=== PATIENT | female | born 1945 | race Caucasian/White ===

== ENCOUNTER → 2021-06-24 | Outpatient (CLI) | payer MEDICARE, OTHER ==
[2021-06-24 12:15] VITALS: BP 164/104; PULSE 92; RESP 16; TEMP 98
--- NOTE | 2021-06-24 13:19 | P.GSHP ---
History of Present Illness H&P Date: 06/24/21 Chief Complaint: right breast invasive ductal cancer/ multifocal Ellie is a 76 year old white female who underwent a bilateral screening mammogram on 86. This rate feel 2 areas suspicious for malignancy. An ultrasound was [place] [address]. This revealed 2 lesions. The patient does not complain of any nipple discharge or skin changes. She does not complain of any pain in her breast at this time. She has never had any surgery on her breasts before. These were in the lower subareolar aspect one medial to the nipple and one lateral to the nipple. An ultrasound core biopsy was done on 06-15-21. On the ultrasound 1 cm from the nipple 5 o'clock position 8 x 7 mm mass was identified. Additionally the more superficial lesion in the 7 o'clock position 1 cm from the nipple revealed a 9 x 11 mm mass tolerated and wide. These lesions were approximately 1.8 cm from each other. Biopsy of both of these lesions revealed invasive ductal carcinoma. The lesions are ER/MO positive and HER-2 negative. The patient did fall in the spring and had a torn right shoulder rotator cuff. That seems to have improved. However she may have overcompensated and now has left sciatica pain. This started 1 week ago. Caffiene: tea; several cups/day nicotine:none; smoked 1PPD for 45 years chocolate: daily Family history: none Hormonal History: menarche: 12 , 1 tubal; breast fed: no, age at first : 17 menopause: 57 BCP: 5 years hormones: progesterone for a short time Surgical History: Tubal /tubal ligation done Medical history: Sciatic nerve high cholesterol Social History: smoke: none alcohol: occasional drugs: none - Constitutional Constitutional: Denies chills, Denies fever - EENT Eyes: denies blurred vision, denies pain Ears: deny: decreased hearing, tinnitus Ears, nose, mouth and throat: Denies headache, Denies sore throat - Breasts Breasts: bilateral: as per HPI - Cardiovascular Cardiovascular: Reports shortness of breath, Denies chest pain - Respiratory Respiratory: Reports cough - Gastrointestinal Gastrointestinal: Denies abdominal pain, Denies diarrhea, Denies nausea, Denies vomiting - Genitourinary (Female) Genitourinary: Denies dysuria, Denies hematuria - Menstruation Menstruation: Reports postmenopausal - Musculoskeletal Musculoskeletal: Reports myalgias - Integumentary Integumentary: Denies pruritus, Denies rash - Neurological Comment: sciatica - Psychiatric Psychiatric: Denies anxiety, Denies depression - Endocrine Endocrine: Denies fatigue, Denies weight change - Hematologic/Lymphatic Comment: anemia - Allergic/Immunologic Allergic/Immunologic: Reports as per HPI Past Medical History History of Any Multi-Drug Resistant Organisms: None Reported Smoking Status: Never smoker Medications and Allergies Home Medications Medication Instructions Recorded Confirmed Type Baclofen 1 cap PO DAILY 06/24/21 06/24/21 History HYDROcodone/APAP 10-325MG [[place] 1 tab PO Q4-6H 06/24/21 06/24/21 History 10-325] Meloxicam [Mobic] 1 cap PO DAILY 06/24/21 06/24/21 History dexAMETHasone 2 mg PO DAILY 06/24/21 06/24/21 History Allergies Allergy/AdvReac Type Severity Reaction Status Date / Time No Known Allergies Allergy Unverified 06/24/21 11:45 Surgical - Exam Vital Signs Temp Pulse Resp BP Pulse Ox 98.0 F 92 16 164/104 97 06/24/21 12:04 06/24/21 12:04 06/24/21 12:04 06/24/21 12:04 06/24/21 12:04 BMI 29.8 - General well developed, well nourished, no distress - Eyes normal ocular movement - ENT no hearing loss, no congestion - Respiratory normal respiratory effort, clear to auscultation - Cardiovascular Rhythm: regular Heart Sounds: normal: S1, S2 - Abdomen Abdomen: soft, non tender, no guarding, no rigid, no rebound - Integumentary normal turgor - Neurologic no disoriented, no combative - Musculoskeletal uses a cane - Psychiatric oriented to time, oriented to person, oriented to place, speech is normal, memory intact Breast exam: BRA: XL inspection: Ecchymosis right breast lateral area related to biopsy, no evidence of infection or hematoma, bilateral grade 2 ptosis Palpation: Right breast: Multi-positional exam questionable fullness in the subareolar region on the lateral aspect fibrocystic changes, otherwise no dominant masses or nodules of concern Right axilla: No adenopathy of concern Left breast: Multi-positional exam fibrocystic changes no dominant masses or nodules of concern Left axilla: No adenopathy of concern Results Mammogram reviewed in detail with Dr. Escoto Assessment and Plan Assessment: Impression: 1. Multifocal right breast stage I a invasive ductal carcinoma 2. Fibrocystic breast changes 3. Sciatica 4. Chronic anemia Plan: 1. Needle localization and it incisional lumpectomy of both areas of concern right breast, sentinel node injection right side, possible methylene blue injection right side, sentinel node biopsy right side, possible axillary node dissection, possible onco- plastic tissue transfer, right breast needle localization and lumpectomy of 2 sites. 2. Presentation of case at tumor board Risks and benefits of the procedure were discussed with the patient. Treatment of the breast include mastectomy, mastectomy plus or minus reconstruction, lumpectomy plus radiation. The patient would prefer to have a lumpectomy if technically possible. Additionally we've talked about sentinel node biopsy. I have discussed with the patient and her daughter that there is some recommendations that over the age of 70 the sentinel node biopsy be omitted. However they would prefer the sentinel node biopsy be done. They understand risks which include bleeding, infection, reaction to the anesthetic. Additionally they understand possibility of injury to the thoracodorsal long thoracic or intercostal brachial nerves. They wish to proceed. He also understands the risk of lymphedema with a sentinel node/axillary node dissection and wished to proceed. They understand that if the margins would be positive on a lumpectomy that repeat excision would be necessary.
== END ==
LOC: WWCWWP 11:36
PROVIDERS: ATTEND Surgery
DX: C50.911 Malignant neoplasm of unspecified site of right female breast (principal); N60.11 Diffuse cystic mastopathy of right breast; N60.12 Diffuse cystic mastopathy of left breast; M54.30 Sciatica, unspecified side; D64.9 Anemia, unspecified; E78.00 Pure hypercholesterolemia, unspecified; Z17.0 Estrogen receptor positive status [ER+]

== ENCOUNTER 2021-07-26 08:15 | Day surgery (SDC) | payer MEDICARE, OTHER ==
[2021-07-22 11:31] VITALS: BMI 29.1
--- NOTE | 2021-07-22 12:14 | P.PN ---
Subjective Progress Note Date: 07/22/21 Principal diagnosis: Stage IA right breast invasive ductal carcinoma multifocal Ellie is a 76 year old white female who underwent a bilateral screening mammogram on 86. This revealed 2 areas suspicious for malignancy. An ultrasound was [place] [address]. This revealed 2 lesions. The patient does not complain of any nipple discharge or skin changes. She does not complain of any pain in her breast at this time. She has never had any surgery on her breasts before. These were in the lower subareolar aspect one medial to the nipple and one lateral to the nipple. An ultrasound core biopsy was done on 06-15-21. On the ultrasound 1 cm from the nipple 5 o'clock position 8 x 7 mm mass was identified. Additionally the more superficial lesion in the 7 o'clock position 1 cm from the nipple revealed a 9 x 11 mm mass taller than wide. These lesions were approximately 1.8 cm from each other. Biopsy of both of these lesions revealed invasive ductal carcinoma. The lesions are ER/AL positive and HER-2 negative. The patient did fall in the spring and had a torn right shoulder rotator cuff. That seems to have improved. However she may have overcompensated and now has left sciatica pain. This started 1 week ago. Her case was presented at tumor board and [id number]. The recommendation was first lumpectomy with sentinel node biopsy, patient therapy, and hormonal therapy. Caffiene: tea; several cups/day nicotine:none; smoked 1PPD for 45 years chocolate: daily Family history: none Hormonal History: menarche: 12 , 1 tubal; breast fed: no, age at first : 17 menopause: 57 BCP: 5 years hormones: progesterone for a short time Surgical History: Tubal /tubal ligation done Medical history: Sciatic nerve pain high cholesterol Social History: smoke: none alcohol: occasional drugs: none - Constitutional Constitutional: Denies chills, Denies fever - EENT Eyes: denies blurred vision, denies pain Ears: deny: decreased hearing, tinnitus Ears, nose, mouth and throat: Denies headache, Denies sore throat - Breasts Breasts: bilateral: as per HPI - Cardiovascular Cardiovascular: Reports shortness of breath, Denies chest pain - Respiratory Respiratory: Reports cough - Gastrointestinal Gastrointestinal: Denies abdominal pain, Denies diarrhea, Denies nausea, Denies vomiting - Genitourinary (Female) Genitourinary: Denies dysuria, Denies hematuria - Menstruation Menstruation: Reports postmenopausal - Musculoskeletal Musculoskeletal: Reports myalgias - Integumentary Integumentary: Denies pruritus, Denies rash - Neurological Comment: sciatica - Psychiatric Psychiatric: Denies anxiety, Denies depression - Endocrine Endocrine: Denies fatigue, Denies weight change - Hematologic/Lymphatic Comment: anemia - Allergic/Immunologic Allergic/Immunologic: Reports as per HPI Objective - Vital Signs Vital signs: Intake & Output 07/21/21 07/22/21 07/22/21 18:59 06:59 18:59 Weight 79.379 kg - Constitutional General appearance: Present: cooperative - EENT Eyes: Present: EOMI ENT: Present: hearing grossly normal - Neck Neck: Present: normal ROM - Respiratory Respiratory: bilateral: CTA - Cardiovascular Heart sounds: normal: S1, S2 - Gastrointestinal General gastrointestinal: Present: soft - Integumentary Integumentary: Present: normal turgor - Musculoskeletal Musculoskeletal Comment(s): using a cane - Psychiatric Psychiatric: Present: A&O x's 3, appropriate affect, intact judgment & insight - Additional findings Additional findings: Breast examination: Block: Extra-large large Inspection: Ecchymosis right breast lateral area related to biopsy, no evidence of infection or hematoma, bilateral grade 2 ptosis Palpation: Right breast: Multiple positional exam questionable fullness in the subareolar region on the lateral aspect fibrocystic changes, no dominant masses or nodules of concern otherwise Right axilla: No adenopathy of concern left breast: Multiple positional exam fibrocystic changes no dominant masses or nodules of concern Left axilla no adenopathy of concern Assessment and Plan Assessment: Mammogram reviewed in detail with Dr. Escoto Impression: Multifocal right breast stage I invasive ductal cancer 2. Fibrocystic breast changes 3. Resulting sciatica 4. Chronic anemia Plan: Plan: 1. Nasal localization and lumpectomy of 2 areas of concern in the right breast, with sentinel node injection, possible methylene blue injection right side, sentinel node biopsy right side, possible axillary node dissection, possible oculoplastic tissue transfer, right breast needle localization lumpectomy of 2 sites Risks and benefits of the procedure were discussed with the patient.. Treatment of the breast and including mastectomy, mastectomy plus or minus reconstruction, lumpectomy plus radiation were discussed. The patient would like to have a lumpectomy. We've also talked with sentinel node biopsy. I discussed with the patient and her daughter that there is some recommendation that over the age of 70 sentinel node biopsy be admitted. However they wish sentinel node biopsy to be performed. Risk include but are not limited to bleeding, infection, reaction to the anesthetic. Additionally there is a possibility of injury to the thoracodorsal or long thoracic or intercostal brachial nerves. They wish to proceed. The also understand the risk of lymphedema with sentinel node/axillary node biopsy. They understand if margins were to be positive on the pectinate a repeat excision would be necessary. At this time the patient does not want a mastectomy to be performed.
[~2021-07-26 08:15] MED LIST: DEXAMETHASONE SOD PHOSPHATE 4 MG/ML 1 ML VIAL IV ONE; HEPARIN SODIUM,PORCINE/PF 5,000 UNIT/0.5 ML SYRINGE SQ PRN; HYDROmorphone 0.5 MG/0.5 ML SYRINGE IVP PRN; LACTATED RINGERS 1,000 ML IV SCH; ONDANSETRON 4 MG/2 ML VIAL IVP ONE; Pre Op ABX Message 1 EACH MISC MISCELLANE ONE
[2021-07-26] MEDS ORDERED: ALPRAZolam 0.25 MG TAB ONE (08:59)
[2021-07-26] MEDS ORDERED: ALPRAZolam 0.25 MG TAB PO ONE (09:02)
[2021-07-26] MEDS ORDERED: LIDOCAINE 1% (10MG/ML) FOR IV START INTRADERMA ONE (09:22)
[2021-07-26] MEDS ORDERED: LIDOCAINE 1% INJ 10MG/ML (20 ML MDV) SQ ONE ×3 (10:23→11:50)
[2021-07-26] MEDS ORDERED: LIDOCAINE 1%-EPI 1:100,000 20 ML VIAL SQ ONE (10:24)
--- NOTE | 2021-07-26 10:29 | P.NAPBC ---
NAPBC Queries - NAPBC Queries Was patient's case review presented at [facility] tumor board? If no, comment.: Yes Was patient's pathology reviewed at [facility]? If no, comment.: Yes Was breast conservation surgery offered? If no, comment.: Yes Was sentinel node biopsy offered? If no, comment.: Yes Was diagnosis confirmed by percutaneous core biopsy? If no, comment.: Yes Is patient mastectomy patient?: No Was a preop referral to reconstructive surgeon offered?: No Clinical Stage: stage IA
[2021-07-26] MEDS ORDERED: SUCCINYLCHOLINE CHLORIDE 100 MG/5 ML SYR IV ONE (11:17)
[2021-07-26] MEDS ORDERED: fentaNYL (PF) 50 MCG/ML 2 ML AMP ONE (11:17)
[2021-07-26] MEDS ORDERED: PROPOFOL 10 MG/ML 20 ML VIAL IV ONE (11:17)
[2021-07-26] MEDS ORDERED: LIDOCAINE 1% INJ 10MG/ML (20 ML MDV) ONE (11:17)
[2021-07-26] MEDS ORDERED: KETOROLAC 15 MG/ML 1 ML VIAL ONE (11:17)
--- NOTE | 2021-07-26 11:34 | NM ---
EXAMINATION TYPE: NM sentinel node injection DATE OF EXAM: 07/26/2021 COMPARISON: NONE HISTORY: Right-sided breast cancer. TECHNIQUE AND FINDINGS: The procedure of sentinel lymph node injection was explained to the patient. The benefits, alternatives, and risks were discussed. An informed consent was then obtained. Overlying skin is cleaned with sterile alcohol. Following this, 495 uCi Tc99m Tilmanocept was inject ed in the upper outer aspect of the right nipple intradermally. The patient tolerated the procedure well without any immediate complication. The patient was kept in the radiology department for short stay after the procedure and then taken to surgery for surgical p rocedure what is presumed intraoperative gamma probe will be used for sentinel lymph node detection. IMPRESSION: Right breast radiotracer injection for sentinel node localization as above.
[2021-07-26] MEDS ORDERED: SODIUM CHLORIDE 0.9% 100 ML with ceFAZolin 2,000 MG IV ONE ×2 (11:35)
--- NOTE | 2021-07-26 13:04 | P.OP ---
Date of Procedure: 07/26/21 Preoperative Diagnosis: Right breast invasive ductal carcinoma 2 sites stage IA both sites Postoperative Diagnosis: Same Procedure(s) Performed: Right sentinel node biopsy, needle localization lumpectomy, onco-plastic tissue transfer total tissue transfer 70 cm Anesthesia: SEGUNDOA Surgeon: Sachi Jerry Estimated Blood Loss (ml): 10 IV fluids (ml): 400 Pathology: other (breast tissue, sentinal node) Condition: stable Disposition: same day Indications for Procedure: Right breast invasive ductal carcinoma Operative Findings: Fibrofatty breast tissue Description of Procedure: Patient is a 76-year-old white female who was noted to have multifocal invasive breast cancer in the right breast, core biopsy of 2 sites were both invasive ductal carcinoma. The patient wishes breast preservation procedure lumpectomy. The patient was first seen in the radiology department where needle localization of both areas of concern in the right breast were performed. The patient also had injection of radioactive substance for the sentinel lymph node. She has brought to the operative suite and following induction of anesthesia the axilla was interrogated. The neoprobe showed the area of increased radioactivity in the axilla. The right breast and axilla were then prepped and draped in a sterile fashion. The axilla was approached initially. Utilizing the neoprobe the location for the incision was determined. An incision was made and carried into the axillary tissue. The area of greatest radioactivity was identified. This was grasped using an Allis clamp and the tissue was removed. On the 10 second count this was 1227. 10 second background count was 21. No other palpable nodes or radioactive nodes of concern were identified. Some additional axillary tissue was removed in the process of identifying the sentinel node. The wound was then well irrigated. After we were assured that hemostasis was attained the deep tissues were closed using 3-0 Vicryl suture. The skin was closed using 4-0 Monocryl. Following this the area of the breast was approached. An incision was made circumareolar with extensions medially and laterally. This was carried down to the area of concern. Wide excision of the tissue marked by the needles was performed. The specimen removed was approximately 7 x 4 cm in size. This was dissected from directly under the skin of the nipple areolar complex and unto the pectoralis major muscle. After this had been removed it was painted for orientation. Radiograph revealed the area of concern had been removed. The wound was well irrigated. Titanium clips were placed. The patient had the lateral pillar dissected which was 6 by 4 centimeters squared, the medial pillar was 6 x 3 cm squared. Tissue transfer was 70 cm. Following this the pillars were brought together using 3-0 Vicryl suture. Subcutaneous tissue was closed using 3-0 Vicryl suture. The skin was closed using 4-0 Monocryl. The patient tolerated the procedure in stable condition. All instrument and sponge counts were correct at the end of the case.
--- NOTE | 2021-07-26 13:06 | P.DS ---
Providers Attending physician: Sachi Jerry Primary care physician: Physician Nonstaff Plan - Discharge Summary Discharge Rx Participant: Yes New Discharge Prescriptions: No Action Meloxicam [Mobic] 1 cap PO DAILY Losartan Potassium 50 mg PO HS Baclofen 1 cap PO DAILY Acetaminophen/Diphenhydramine [Tylenol PM 500-25mg] 1 tab PO HS PRN PRN Reason: Anxiety Discharge Medication List Baclofen 1 cap PO DAILY 06/24/21 [History] Meloxicam [Mobic] 1 cap PO DAILY 06/24/21 [History] Acetaminophen/Diphenhydramine [Tylenol PM 500-25mg] 1 tab PO HS PRN 07/22/21 [History] Losartan Potassium 50 mg PO HS 07/22/21 [History] Follow up Appointment(s)/Referral(s): Sachi Jerry MD [STAFF PHYSICIAN] - 08/05/21 12:20 pm Activity/Diet/Wound Care/Special Instructions: do not drive today or if taking narcotic pain medicine may shower after 48 hours wear bra at all times Discharge Disposition: HOME SELF-CARE
[2021-07-26 13:52] VITALS: TEMP 96.9
--- NOTE | 2021-07-26 13:58 | USB ---
EXAM: Needle localization with wire placement. CLINICAL HISTORY: 2 site biopsy proven neoplasm in the right breast TECHNIQUE: Needle localization with wire placement and surgical excision of both areas of concern in the right breast. COMPARISON: Outside ultrasound and postbiopsy mammogram June 15, 2021 and older outside studies. FINDINGS: The procedure of needle localization with wire placement and than surgical excision was exp lained to the patient. Benefits, alternatives, and risks were discussed. An informed consent was th en obtained. Because lesions were sampled and best seen under ultrasound which provides the shortest path, this is chosen for localization. Preprocedure ultrasound redemonstrates suspicious hypoechoic masses that 5 :00 and 7:00 position zone A, 7:00 lesion larger and more suspicious. The overlying skin was prepped and draped in usual sterile fashion. Lidocaine was used as anesthetic into the skin and subcutaneous tissue. Lidocaine with epinephrine is used as anesthetic into the deeper tissue up to the to areas of concern. A 5 cm needle was used. 7:00 lesion was approached from lateral aspect. The 5:00 lesion wa s approached from medial aspect. Under ultrasound guidance, needle wires were placed and At this poin t, wire was placed and the needle was withdrawn. The wire was fixed to patient's skin. Postprocedure mammogram performed for ordering surgeon. Images were marked for surgeon. The patient tolerated the procedure well without any immediate complication. The patient was kept in the radiology department for short stay after the procedure and then taken to surgery for surgical e xcision. Targeted biopsy clips and wire are identified in specimen mammogram. [facility] after the procedure and then discharged home in stable condition. IMPRESSION: Successful, uncomplicated needle localization with wire placement and surgical excision o f targeted biopsy clips corresponding to biopsy-proven malignant masses in the right breast, full pat hology results to follow.
[2021-07-26 14:07] VITALS: RESP 18
[2021-07-26] MEDS ORDERED: LACTATED RINGERS 1,000 ML IV ONE (14:12)
[2021-07-26 14:53] VITALS: BP 178/99; PULSE 89
--- NOTE | 2021-07-28 11:33 | P.PN ---
Progress Note - Text Progress Note Date: 07/28/21 [place] [id number]. Patient stated she had some abdominal discomfort after eating a steak dinner the night of surgery. She stated that she had a large amount of gas. She states that at this time she has passed gas and she no longer has abdominal pain but is concerned about eating. She is not complaining of any fever or chills. She does not complain of any pain related to her operative site. The patient has had bowel movements and at this time again has no abdominal pain. If the pain recurs that she should go to the emergency department. The patient states that she was concerned so did not eat since yesterday but is going to start with a smaller portions and a bland diet at this time. Again if the patient has any questions or concerns she should go to the emergency room.
== END 2021-07-26 15:20 | disposition home or self-care (01) ==
LOC: OR 08:15
PROVIDERS: ATTEND Surgery
DX: C50.911 Malignant neoplasm of unspecified site of right female breast (principal); I10 Essential (primary) hypertension; E78.5 Hyperlipidemia, unspecified; Z77.22 Contact with and (suspected) exposure to environmental tobacco smoke (acute) (chronic); Z98.890 Other specified postprocedural states; Z97.2 Presence of dental prosthetic device (complete) (partial); Z98.51 Tubal ligation status; E78.00 Pure hypercholesterolemia, unspecified; M54.30 Sciatica, unspecified side; D64.9 Anemia, unspecified; Z79.1 Long term (current) use of non-steroidal anti-inflammatories (NSAID); Z79.899 Other long term (current) drug therapy
CPT/HCPCS: 77065; 76098; 19285; 19286; 38792; 19301; 38525; 14301; 14302; C1819; A9520; J1100; J2405; J0690; J2001; J3010; J1885; J0330; J2704; J1170; J1644

== ENCOUNTER → 2021-08-05 | Outpatient (CLI) | payer MEDICARE, OTHER ==
[2021-08-05 12:34] VITALS: BP 153/86; PULSE 88; RESP 12; TEMP 98.1
--- NOTE | 2021-08-05 13:06 | P.PN ---
Progress Note - Text Progress Note Date: 08/05/21 Ellie is a 76-year-old white female status post right breast lumpectomy and sentinel node biopsy on . Pathology revealed multifocal invasive moderately differentiated ductal carcinoma grade 2 and focal intermediate grade DCIS all margins were negative [place] lymph node negative Patient has done well postprocedure Physical examination: Lungs: Clear Heart: Regular rate and rhythm Right breast incision is clean and dry small seroma tissue in the lateral aspect of the right breast Impression: Patient status post right breast lumpectomy and sentinel node biopsy margins negative Plan: Remove sutures Follow-up with medical oncology Follow-up radiation oncology Follow-up care in 4 months CC: Dr. Bishop
== END ==
LOC: WWCWWP 12:19
PROVIDERS: ATTEND Surgery
DX: C50.911 Malignant neoplasm of unspecified site of right female breast (principal); Z98.890 Other specified postprocedural states

== ENCOUNTER → 2022-09-28 | Outpatient (CLI) | payer MEDICARE, OTHER ==
--- NOTE | 2022-09-28 13:37 | MM ---
Reason for Exam: Follow-up at short interval from prior study. Last mammogram was performed 1 year(s) and 4 month(s) ago. Patient History: Menarche at age 12. First Full-Term at age 17. Right ovary removed at age 32. Postmenopausal. Patient has history of breast feeding. Breast cancer, age 76. Previous chest radiation therapy at age 76. 07/26/2021, Lumpectomy on the Right side. 07/26/2021, Malignant Core Biopsy on the right side. Prior Study Comparison: 10/26/2016 Bilateral MG 3D screening mammo w/cad, [facility]. 05/27/2021 Bilateral MG 3D screening mammo w/cad, Unknown. 06/02/2021 Right MG 3D diag mammo w/cad DANITA - 2, [facility]. 07/26/2021 Right Diagnostic Mammogram, [facility]. 06/08/2022 Right MG 3D diag mammo w/cad RT, [facility]. Tissue Density: The breast tissue is heterogeneously dense. This may lower the sensitivity of mammography. Findings: Analyzed By CAD. Diffuse bilateral rounded punctate calcifications redemonstrated. Benign vascular calcifications on the left. Extensive postsurgical and posttreatment changes right breast with a 7.6 cm circumscribed mass redemonstrated on the right, likely large post surgical seroma. Ongoing follow-up recommended to assess for any evolving posttreatment change. Nipple inversion on the left is unchanged. Otherwise, stable findings from prior. Overall Assessment: Probably benign, BI-RAD 3 Management: Diagnostic Mammogram of the right breast in 6 months. Ongoing short interval follow-up right breast to assess for any evolving posttreatment change. Patient should continue monthly self breast exams. Results were given to the patient verbally at the time of exam. Electronically signed and approved by: Rani Mata M.D. Radiologist
[2022-09-28 13:50] VITALS: BP 183/83; PULSE 85; RESP 17; TEMP 97.8
--- NOTE | 2022-09-28 14:01 | P.PN ---
Subjective Progress Note Date: 09/28/22 Principal diagnosis: right breast stage 1A multifocal invasive ductal cancer right breast stage 1A mutifocal invasive ductal cancer right breast invasive ductal cancer Ellie is a 77 year old white female who underwent a bilateral screening mammogram on 8620. This revealed 2 areas suspicious for malignancy. An ultrasound [place] [address]. This revealed 2 lesions. The patient did not complain of any nipple discharge or skin changes. She did not complain of any pain in her breast at this time. She had never had any surgery on her breasts before. These were in the lower subareolar aspect one medial to the nipple and one lateral to the nipple. An ultrasound core biopsy was done on 06-15-21. On the ultrasound 1 cm from the nipple 5 o'clock position 8 x 7 mm mass was identified. Additionally the more superficial lesion in the 7 o'clock position 1 cm from the nipple revealed a 9 x 11 mm mass taller than wide. These lesions were approximately 1.8 cm from each other. Biopsy of both of these lesions revealed invasive ductal carcinoma. The lesions are ER/CA positive and HER-2 negative. The patient did fall in the spring and had a torn right shoulder rotator cuff. That seems to have improved. However she may have overcompensated and now has left sciatica pain. This started 1 week ago. The patient on 08-05-21 underwent a right breast lumpectomy and SNB. Pathology revelaed multifocal invasive ductal cancer G2. Sentinal node was (-). She completed proton radiation in November 2021. This was done in [facility]. She did not have any chemotherapy or hormone therapy. At this time she does not note any lumps masses or nodules of concern in either breast. I reviewed right breast mammogram performed on with Dr. Calero who feels that there are only postoperative and postradiation changes and this is stable. 09-28-22 Bialteral mammogram on 09-28-22 bilateral mammogram reviewed; BIRAD 3 repeat right breast mammogram in 6 months. This is not complaining of any new lumps ma sses or nodules of concern in either breast. Caffiene: tea; several cups/day nicotine:none; smoked 1PPD for 45 years chocolate: daily Family history: none Hormonal History: menarche: 12 , 1 tubal; breast fed: no, age at first : 17 menopause: 57 BCP: 5 years hormones: progesterone for a short time Surgical History: Tubal /tubal ligation done right breast lumpectomy and SNB Medical history: Sciatic nerve/ better at this time high cholesterol Social History: smoke: none alcohol: occasional drugs: none - Constitutional Constitutional: Denies chills, Denies fever - EENT Eyes: denies blurred vision, denies pain Ears: deny: decreased hearing, tinnitus Ears, nose, mouth and throat: Denies headache, Denies sore throat - Breasts Breasts: bilateral: as per HPI - Cardiovascular Cardiovascular: Reports shortness of breath, Denies chest pain - Respiratory Respiratory: Reports cough - Gastrointestinal Gastrointestinal: Denies abdominal pain, Denies diarrhea, Denies nausea, Denies vomiting - Genitourinary (Female) Genitourinary: Denies dysuria, Denies hematuria - Menstruation Menstruation: Reports postmenopausal - Musculoskeletal Musculoskeletal: Reports myalgias - Integumentary Integumentary: Denies pruritus, Denies rash - Neurological Comment: sciatica - Psychiatric Psychiatric: Denies anxiety, Denies depression - Endocrine Endocrine: Denies fatigue, Denies weight change - Hematologic/Lymphatic Comment: anemia - Allergic/Immunologic Allergic/Immunologic: Reports as per HPI Objective - Vital Signs Vital signs: Intake & Output 09/27/22 09/28/22 09/28/22 18:59 06:59 18:59 Weight 86.183 kg - Constitutional General appearance: Present: cooperative - EENT Eyes: Present: edentulous ENT: Present: hearing grossly normal - Neck Neck: Present: normal ROM - Respiratory Respiratory: bilateral: CTA - Cardiovascular Rhythm: regular Heart sounds: normal: S1, S2 - Gastrointestinal General gastrointestinal: Present: soft - Integumentary Integumentary: Present: normal turgor - Musculoskeletal Musculoskeletal: Present: gait normal - Psychiatric Psychiatric: Present: A&O x's 3, appropriate affect, intact judgment & insight - Additional findings Additional findings: Breast Exam: BRA: XL Inspection: Well-healed scar right breast changes from radiation and surgery, left breast grade 2 ptosis Palpation: Right breast multiple positional exam postoperative and postradiation changes no dominant masses or nodules of concern Right axilla: No adenopathy of concern Left breast: Multiple positional exam no dominant masses or nodules of concern, fibrocystic changes Left axilla: No adenopathy of concern Assessment and Plan Assessment: Impression: Stage I a multifocal invasive ductal carcinoma/patient underwent a right breast lumpectomy and sentinel node biopsy on 10141122. Pathology revealed multifocal invasive ductal carcinoma grade 2. [place] node was negative. She completed proton radiation in November 2021 in the clear inflamed. She did not have any chemo or hormonal therapy. At this time she does not note any lumps masses or nodules of concern in either breast. Plan: Bilateral mammogram 43020. Benign BIRADS 3. Repeat right breast mammogram in 6 months follow up sooner if any questions CC: Dr. Bishop
== END ==
LOC: WWCWWP 12:45
PROVIDERS: ATTEND Surgery
DX: Z85.3 Personal history of malignant neoplasm of breast (principal)
CPT/HCPCS: 77066; G0279; 77062

== ENCOUNTER → 2023-03-30 | Outpatient (CLI) | payer MEDICARE, OTHER ==
--- NOTE | 2023-04-05 12:18 | P.PN ---
Progress Note - Text Progress Note Date: 04/05/23 Miguelangel Stephens did not stay for breast examination. She did have a right breast mammogram which was benign BIRADS 2. I've call the patient and discussed this with her personally. I have also reviewed the mammogram. The patient states she has not had anything she is concerned about in her breasts. She is going to call to schedule another appointment. Additionally she'll have a bilateral mammogram and examination in September 2023.
== END ==
LOC: WWCWWP 12:52
PROVIDERS: ATTEND Surgery
DX: R92.8 Other abnormal and inconclusive findings on diagnostic imaging of breast (principal)

== ENCOUNTER → 2023-03-30 | Outpatient (CLI) | payer MEDICARE, OTHER ==
--- NOTE | 2023-03-30 14:01 | MM ---
Reason for Exam: Follow-up at short interval from prior study. Last screening mammogram was performed 6 month(s) ago. Patient History: Menarche at age 12. First Full-Term at age 17. Right ovary removed at age 32. Postmenopausal. Patient has history of breast feeding. Breast cancer, age 76. Previous chest radiation therapy at age 76. 07/26/2021, Lumpectomy on the Right side. 07/26/2021, Malignant Core Biopsy on the right side. Niece had breast cancer under age 50. Maternal aunt had ovarian cancer at or over age 50. Prior Study Comparison: 10/26/2016 Bilateral MG 3D screening mammo w/cad, [facility]. 05/27/2021 Bilateral MG 3D screening mammo w/cad, Unknown. 06/02/2021 Right MG 3D diag mammo w/cad DANITA - 2, [facility]. 07/26/2021 Right Diagnostic Mammogram, [facility]. 06/08/2022 Right MG 3D diag mammo w/cad RT, [facility]. 09/28/2022 Bilateral MG 3D diag mammo w/cad DANITA, [facility]. Tissue Density: Right: The breast tissue is heterogeneously dense. This may lower the sensitivity of mammography. Findings: Analyzed By CAD. Stable right breast masslike area measuring 73mm could represent hematoma/seroma.. Consultations are again seen more posteriorly likely representing fat necrosis. No new suspicious masses, calcifications or distortions. Overall Assessment: Benign, BI-RAD 2 Management: Screening Mammogram of both breasts in 1 year. Results were given to the patient verbally at the time of exam. Patient should continue monthly self-breast exams. A clinical breast exam by your physician is recommended on an annual basis. This exam should not preclude additional follow-up of suspicious palpable abnormalities. Note on Kaylen scores and lifetime risk: 1. A Kaylen score greater than 3% is considered moderate risk. If this is the case, consider specialist referral to assess eligibility for a risk reducing agent. 2. If overall lifetime risk for the development of breast cancer is 20% or higher, the patient may qualify for future screening with alternating mammogram and breast MRI. Electronically signed and approved by: Harris Oneil DO
== END | disposition home or self-care (01) ==
LOC: RADMAMWWP 12:53
PROVIDERS: ATTEND Surgery
DX: R92.8 Other abnormal and inconclusive findings on diagnostic imaging of breast (principal); Z85.3 Personal history of malignant neoplasm of breast; Z78.0 Asymptomatic menopausal state; Z80.41 Family history of malignant neoplasm of ovary
CPT/HCPCS: 77065; G0279; 77061

== ENCOUNTER → 2023-05-31 | Outpatient (CLI) | payer MEDICARE, OTHER ==
[2023-05-31 09:02] VITALS: BP 168/89; PULSE 73; RESP 18; TEMP 98.1
--- NOTE | 2023-05-31 09:50 | P.PN ---
Subjective Progress Note Date: 05/31/23 right breast stage 1A mutifocal invasive ductal cancer 2020 Ellie is a 77 year old white female who underwent a bilateral screening mammogram on 8620. This revealed 2 areas suspicious for malignancy. An ultrasound was recommended of the right breast which was performed on . This revealed 2 lesions. The patient did not complain of any nipple discharge or skin changes. She did not complain of any pain in her breast at this time. She had never had any surgery on her breasts before. These were in the lower subareolar aspect one medial to the nipple and one lateral to the nipple. An ultrasound core biopsy was done on 06-15-21. On the ultrasound 1 cm from the nipple 5 o'clock position 8 x 7 mm mass was identified. Additionally the more superficial lesion in the 7 o'clock position 1 cm from the nipple revealed a 9 x 11 mm mass taller than wide. These lesions were approximately 1.8 cm from each other. Biopsy of both of these lesions revealed invasive ductal carcinoma. The lesions are ER/[place] positive and HER-2 negative. The patient did fall in the spring and had a torn right shoulder rotator cuff. That seems to have improved. However she may have overcompensated and now has left sciatica pain. This started 1 week ago. The patient on 08-05-21 underwent a right breast lumpectomy and SNB. Pathology revelaed multifocal invasive ductal cancer G2. Sentinal node was (-). She completed proton radiation in November 2021. This was done in [facility]. She did not have any chemotherapy or hormone therapy. At this time she does not note any lumps masses or nodules of concern in either breast. I reviewed right breast mammogram performed on with Dr. Calero who feels that there are only postoperative and postradiation changes and this is stable. 09-28-22 Bialteral mammogram on 09-28-22 bilateral mammogram reviewed; BIRAD 3 repeat right breast mammogram in 6 months. This is not complaining of any new lumps masses or nodules of concern in either breast. 05-31-23 Bilateral mammogram on 09-28-22 BIRAD 3 repeat right breast mammogram in 6 months Repeat right breast mammogram on 03-30-23 which was BIRAD 2; repeat bilateral mammogram in September 2023. Not complaining of any new lumps masses or nodules of concern in either breast. She finished radiation therapy in Nov 2021. THis was done in [place] and was proton radiation. She is not taking any hormone therpay/ no chemotherapy she saw medical oncology and declined hormone therapy Caffiene: tea; several cups/day nicotine:none; smoked 1PPD for 45 years chocolate: daily Family history: none Hormonal History: menarche: 12 , 1 tubal; breast fed: no, age at first : 17 menopause: 57 BCP: 5 years hormones: progesterone for a short time Surgical History: Tubal /tubal ligation done right breast lumpectomy and SNB Medical history: Sciatic nerve/ better at this time high cholesterol Social History: smoke: none alcohol: occasional drugs: none - Constitutional Constitutional: Denies chills, Denies fever - EENT Eyes: denies blurred vision, denies pain Ears: deny: decreased hearing, tinnitus Ears, nose, mouth and throat: Denies headache, Denies sore throat - Breasts Breasts: bilateral: as per HPI - Cardiovascular Cardiovascular: Reports shortness of breath, Denies chest pain - Respiratory Respiratory: Reports cough - Gastrointestinal Gastrointestinal: Denies abdominal pain, Denies diarrhea, Denies nausea, Denies vomiting - Genitourinary (Female) Genitourinary: Denies dysuria, Denies hematuria - Menstruation Menstruation: Reports postmenopausal - Musculoskeletal Musculoskeletal: Reports myalgias - Integumentary Integumentary: Denies pruritus, Denies rash - Neurological Comment: sciatica - Psychiatric Psychiatric: Denies anxiety, Denies depression - Endocrine Endocrine: Denies fatigue, Denies weight change - Hematologic/Lymphatic Comment: anemia - Allergic/Immunologic Allergic/Immunologic: Reports as per HPI Objective - Vital Signs Vital signs: Vital Signs Temp 98.1 F 05/31/23 08:57 Pulse 73 05/31/23 08:57 Resp 18 05/31/23 08:57 BP 168/89 05/31/23 08:57 Pulse Ox 97 05/31/23 08:57 FiO2 Intake & Output 05/30/23 05/31/23 05/31/23 18:59 06:59 18:59 Weight 86.183 kg - Constitutional General appearance: Present: cooperative - EENT Eyes: Present: EOMI ENT: Present: hearing grossly normal - Neck Neck: Present: normal ROM - Respiratory Respiratory: bilateral: CTA - Cardiovascular Rhythm: regular Heart sounds: normal: S1, S2 - Integumentary Integumentary: Present: normal turgor - Musculoskeletal Musculoskeletal: Present: gait normal - Psychiatric Psychiatric: Present: A&O x's 3, appropriate affect, intact judgment & insight - Additional findings Additional findings: Breast Exam: BRA: XL Inspection: Well-healed scar right breast changes from radiation and surgery, left breast grade 2 ptosis Palpation: Right breast multiple positional exam postoperative and postradiation changes no dominant masses or nodules of concern Right axilla: No adenopathy of concern Left breast: Multiple positional exam no dominant masses or nodules of concern, fibrocystic changes Left axilla: No adenopathy of concern Assessment and Plan Assessment: Impression: Stage I a multifocal invasive ductal carcinoma/patient underwent a right breast lumpectomy and sentinel node biopsy on 10141122. Pathology revealed multifocal invasive ductal carcinoma grade 2. [place] node was negative. She completed proton radiation in November 2021. She did not have any chemo or hormonal therapy. At this time she does not note any lumps masses or nodules of concern in either breast. Plan: Due for bilateral mammogram in September 2023 follow up in September 2023 after mammogram or sooner if any concerns CC: Dr. Bishop
== END ==
LOC: WWCWWP 08:25
PROVIDERS: ATTEND Surgery
DX: D05.11 Intraductal carcinoma in situ of right breast (principal); E78.00 Pure hypercholesterolemia, unspecified; S46.011A Strain of muscle(s) and tendon(s) of the rotator cuff of right shoulder, initial encounter; Z92.3 Personal history of irradiation; Z90.11 Acquired absence of right breast and nipple; X58.XXXA Exposure to other specified factors, initial encounter

== ENCOUNTER → 2023-11-08 | Outpatient (CLI) | payer MEDICARE, OTHER ==
--- NOTE | 2023-11-08 13:34 | MM ---
Reason for Exam: Additional evaluation requested from prior study. Last mammogram was performed 1 year(s) and 1 month(s) ago. Patient History: Menarche at age 12. First Full-Term at age 17. Right ovary removed at age 32. Postmenopausal. Patient has history of breast feeding. Breast cancer, right, age 76. Previous chest radiation therapy at age 76. 07/26/2021, Lumpectomy on the Right side. 07/26/2021, Malignant Core Biopsy on the right side. Niece had breast cancer under age 50. Maternal aunt had ovarian cancer at or over age 50. Prior Study Comparison: 10/26/2016 Bilateral MG 3D screening mammo w/cad, [facility]. 05/27/2021 Bilateral MG 3D screening mammo w/cad, Unknown. 07/26/2021 Right Diagnostic Mammogram, [facility]. 09/28/2022 Bilateral MG 3D diag mammo w/cad DANITA, [facility]. 03/30/2023 Right MG 3D diag mammo w/cad RT, [facility]. Tissue Density: The breast tissue is heterogeneously dense. This may lower the sensitivity of mammography. Findings: Analyzed By CAD. Postsurgical and posttraumatic changes right breast. 90 10:00 calcifications at a middle to posterior depth continue to increase, suspected developing fat necrosis calcifications for which ongoing follow-up is recommended. Diffuse round and punctate calcifications on the left are unchanged. Subareolar asymmetric density on the left is also unchanged. Overall Assessment: Probably benign, BI-RAD 3 Management: Diagnostic Mammogram of the right breast in 6 months. . Results were given to the patient verbally at the time of exam. Patient should continue monthly self-breast exams. A clinical breast exam by your physician is recommended on an annual basis. This exam should not preclude additional follow-up of suspicious palpable abnormalities. Electronically signed and approved by: Rani Mata M.D. Radiologist
--- NOTE | 2023-11-08 13:54 | P.PN ---
Subjective Progress Note Date: 11/08/23 right breast stage 1A mutifocal invasive ductal cancer 2020 Ellie is a 77 year old white female who underwent a bilateral screening mammogram on 8620. This revealed 2 areas suspicious for malignancy. An ultrasound was recommended of the right breast which was performed on . This revealed 2 lesions. The patient did not complain of any nipple discharge or skin changes. She did not complain of any pain in her breast at this time. She had never had any surgery on her breasts before. These were in the lower subareolar aspect one medial to the nipple and one lateral to the nipple. An ultrasound core biopsy was done on 06-15-21. On the ultrasound 1 cm from the nipple 5 o'clock position 8 x 7 mm mass was identified. Additionally the more superficial lesion in the 7 o'clock position 1 cm from the nipple revealed a 9 x 11 mm mass taller than wide. These lesions were approximately 1.8 cm from each other. Biopsy of both of these lesions revealed invasive ductal carcinoma. The lesions are ER/[place] positive and HER-2 negative. The patient did fall in the spring and had a torn right shoulder rotator cuff. That seems to have improved. However she may have overcompensated and now has left sciatica pain. This started 1 week ago. The patient on 08-05-21 underwent a right breast lumpectomy and SNB. Pathology revelaed multifocal invasive ductal cancer G2. Sentinal node was (-). She completed proton radiation in November 2021. This was done in [facility]. She did not have any chemotherapy or hormone therapy. At this time she does not note any lumps masses or nodules of concern in either breast. I reviewed right breast mammogram performed on with Dr. Calero who feels that there are only postoperative and postradiation changes and this is stable. 09-28-22 Bialteral mammogram on 09-28-22 bilateral mammogram reviewed; BIRAD 3 repeat right breast mammogram in 6 months. This is not complaining of any new lumps masses or nodules of concern in either breast. 05-31-23 Bilateral mammogram on 09-28-22 BIRAD 3 repeat right breast mammogram in 6 months Repeat right breast mammogram on 03-30-23 which was BIRAD 2; repeat bilateral mammogram in September 2023. Not complaining of any new lumps masses or nodules of concern in either breast. She finished radiation therapy in Nov 2021. THis was done in [place] and was proton radiation. She is not taking any hormone therpay/ no chemotherapy she saw medical oncology and declined hormone therapy 11-08-23 11-08-23 bilateral mammogram BIRAD 3, repeat right breast mammogram in 6 months (personally reviewed) recent anemia requiring infusion, October 03; she has had anxiety regarding this took Paxil, and did not tolerate this well She is not feeling any new lumps masses or nodules of concern in either breast Caffiene: tea; several cups/day nicotine:none; smoked 1PPD for 45 years chocolate: daily Family history: none Hormonal History: menarche: 12 , 1 tubal; breast fed: no, age at first : 17 menopause: 57 BCP: 5 years hormones: progesterone for a short time Surgical History: Tubal /tubal ligation done right breast lumpectomy and SNB Medical history: Sciatic nerve/ better at this time high cholesterol anemia ? cause Social History: smoke: none alcohol: occasional drugs: none - Constitutional Constitutional: Denies chills, Denies fever - EENT Eyes: denies blurred vision, denies pain Ears: deny: decreased hearing, tinnitus Ears, nose, mouth and throat: Denies headache, Denies sore throat - Breasts Breasts: bilateral: as per HPI - Cardiovascular Cardiovascular: Reports shortness of breath, Denies chest pain - Respiratory Respiratory: Reports cough - Gastrointestinal Gastrointestinal: Denies abdominal pain, Denies diarrhea, Denies nausea, Denies vomiting - Genitourinary (Female) Genitourinary: Denies dysuria, Denies hematuria - Menstruation Menstruation: Reports postmenopausal - Musculoskeletal Musculoskeletal: Reports myalgias - Integumentary Integumentary: Denies pruritus, Denies rash - Neurological Comment: sciatica - Psychiatric Psychiatric: Denies anxiety, Denies depression - Endocrine Endocrine: Denies fatigue, Denies weight change - Hematologic/Lymphatic Comment: anemia - Allergic/Immunologic Allergic/Immunologic: Reports as per HPI Objective - Constitutional General appearance: Present: cooperative - EENT Eyes: Present: EOMI ENT: Present: hearing grossly normal - Neck Neck: Present: normal ROM - Respiratory Respiratory: bilateral: CTA - Cardiovascular Rhythm: regular Heart sounds: normal: S1, S2 - Gastrointestinal General gastrointestinal: Present: soft - Integumentary Integumentary: Present: normal turgor - Musculoskeletal Musculoskeletal: Present: gait normal - Psychiatric Psychiatric: Present: A&O x's 3, appropriate affect, intact judgment & insight - Additional findings Additional findings: Breast Exam: BRA: XL Inspection: Well-healed scar right breast changes from radiation and surgery, le ft breast grade 2 ptosis Palpation: Right breast multiple positional exam postoperative and postradiation changes no dominant masses or nodules of concern Right axilla: No adenopathy of concern Left breast: Multiple positional exam no dominant masses or nodules of concern, fibrocystic changes Left axilla: No adenopathy of concern Assessment and Plan Assessment: Impression: Stage I a multifocal invasive ductal carcinoma/patient underwent a right breast lumpectomy and sentinel node biopsy on 10141122. Pathology revealed multifocal invasive ductal carcinoma grade 2. [place] node was negative. She completed proton radiation in November 2021. She did not have any chemo or hormonal therapy. At this time she does not note any lumps masses or nodules of concern in either breast. bilateral mammogram 11-08-23; BIRAD 3 repeat right breast mammogram in 6 months Plan: right breast mammogram in 6 months with appointment CC: Dr. Bishop
== END | disposition home or self-care (01) ==
LOC: RADMAMWWP 12:47
PROVIDERS: ATTEND Surgery
DX: R92.333 Mammographic heterogeneous density, bilateral breasts (principal); Z85.3 Personal history of malignant neoplasm of breast; Z80.3 Family history of malignant neoplasm of breast; Z78.0 Asymptomatic menopausal state
CPT/HCPCS: 77066; G0279; 77062

== ENCOUNTER → 2023-11-08 | Outpatient (CLI) | payer MEDICARE, OTHER ==
[2023-11-08 13:52] VITALS: BP 176/92; PULSE 88; RESP 17; TEMP 97.9
== END ==
LOC: WWCWWP 12:50
PROVIDERS: ATTEND Surgery
DX: Z53.9 Procedure and treatment not carried out, unspecified reason (principal)

== ENCOUNTER → 2024-07-25 | Outpatient (CLI) | payer MEDICARE, OTHER ==
[2024-07-25 12:30] VITALS: BP 163/81; PULSE 86; RESP 18; TEMP 98.3
--- NOTE | 2024-07-25 13:18 | P.PN ---
Subjective Progress Note Date: 07/25/24 11/08/23 right breast stage 1A mutifocal invasive ductal cancer 2020 Ellie is a 77 year old white female who underwent a bilateral screening mammogram on 8620. This revealed 2 areas suspicious for malignancy. An ultrasound was recommended of the right breast which was performed on . This revealed 2 lesions. The patient did not complain of any nipple discharge or skin changes. She did not complain of any pain in her breast at this time. She had never had any surgery on her breasts before. These were in the lower subareolar aspect one medial to the nipple and one lateral to the nipple. An ultrasound core biopsy was done on 06-15-21. On the ultrasound 1 cm from the nipple 5 o'clock position 8 x 7 mm mass was identified. Additionally the more superficial lesion in the 7 o'clock position 1 cm from the nipple revealed a 9 x 11 mm mass taller than wide. These lesions were approximately 1.8 cm from each other. Biopsy of both of these lesions revealed invasive ductal carcinoma. The lesions are ER/MO positive and HER-2 negative. The patient did fall in the spring and had a torn right shoulder rotator cuff. That seems to have improved. However she may have overcompensated and now has left sciatica pain. This started 1 week ago. The patient on 08-05-21 underwent a right breast lumpectomy and SNB. Pathology revelaed multifocal invasive ductal cancer G2. Sentinal node was (-). She completed proton radiation in November 2021. This was done in [facility]. She did not have any chemotherapy or hormone therapy. At this time she does not note any lumps masses or nodules of concern in either breast. I reviewed right breast mammogram performed on with Dr. Calero who feels that there are only postoperative and postradiation changes and this is stable. 09-28-22 Bialteral mammogram on 09-28-22 bilateral mammogram reviewed; BIRAD 3 repeat right breast mammogram in 6 months. This is not complaining of any new lumps masses or nodules of concern in either breast. 05-31-23 Bilateral mammogram on 09-28-22 BIRAD 3 repeat right breast mammogram in 6 months Repeat right breast mammogram on 03-30-23 which was BIRAD 2; repeat bilateral mammogram in September 2023. Not complaining of any new lumps masses or nodules of concern in either breast. She finished radiation therapy in Nov 2021. THis was done in [place] and was proton radiation. She is not taking any hormone therpay/ no chemotherapy she saw medical oncology and declined hormone therapy 11-08-23 11-08-23 bilateral mammogram BIRAD 3, repeat right breast mammogram in 6 months (personally reviewed) recent anemia requiring infusion, October 03; she has had anxiety regarding this took Paxil, and did not tolerate this well She is not feeling any new lumps masses or nodules of concern in either breast 07-25-24 She is not complaining of any new lumps masses or nodules of concern in either breast. She had a breast mammogram on 07-25-2024 which was personally reviewed and discussed with the radiologist Dr. Gonzalez. This is felt to be stable and a repeat bilateral mammogram in 6 months is recommended. Caffiene: tea; several cups/day nicotine:none; smoked 1PPD for 45 years chocolate: daily Family history: none Hormonal History: menarche: 12 , 1 tubal; breast fed: no, age at first : 17 menopause: 57 BCP: 5 years hormones: progesterone for a short time Surgical History: Tubal /tubal ligation done right breast lumpectomy and SNB Medical history: Sciatic nerve/ better at this time high cholesterol anemia ? cause, gets iron infusions Social History: smoke: none alcohol: occasional drugs: none - Constitutional Constitutional: Denies chills, Denies fever - EENT Eyes: denies blurred vision, denies pain Ears: deny: decreased hearing, tinnitus Ears, nose, mouth and throat: Denies headache, Denies sore throat - Breasts Breasts: bilateral: as per HPI - Cardiovascular Cardiovascular: Reports shortness of breath, Denies chest pain - Respiratory Respiratory: Reports cough - Gastrointestinal Gastrointestinal: Denies abdominal pain, Denies diarrhea, Denies nausea, Denies vomiting - Genitourinary (Female) Genitourinary: Denies dysuria, Denies hematuria - Menstruation Menstruation: Reports postmenopausal - Musculoskeletal Musculoskeletal: Reports myalgias - Integumentary Integumentary: Denies pruritus, Denies rash - Neurological Comment: sciatica - Psychiatric Psychiatric: Denies anxiety, Denies depression - Endocrine Endocrine: Denies fatigue, Denies weight change - Hematologic/Lymphatic Comment: anemia - Allergic/Immunologic Allergic/Immunologic: Reports as per HPI Objective - Vital Signs Vital signs: Vital Signs Temp 98.3 F 07/25/24 12:27 Pulse 86 07/25/24 12:27 Resp 18 07/25/24 12:27 BP 163/81 07/25/24 12:27 Pulse Ox 95 07/25/24 12:27 FiO2 Intake & Output 07/24/24 07/25/24 07/25/24 18:59 06:59 18:59 Weight 86.183 kg - Constitutional General appearance: Present: cooperative - EENT Eyes: Present: EOMI ENT: Present: hearing grossly normal - Neck Neck: Present: normal ROM - Respiratory Respiratory: bilateral: CTA - Cardiovascular Heart sounds: normal: S1, S2 - Integumentary Integumentary: Present: normal turgor - Psychiatric Psychiatric: Present: A&O x's 3, appropriate affect, intact judgment & insight - Additional findings Additional findings: Breast Exam: BRA: XL Inspection: Well-healed scar right breast changes from radiation and surgery, left breast grade 2 ptosis Palpation: Right breast multiple positional exam postoperative and postradiation changes no dominant masses or nodules of concern Right axilla: No adenopathy of concern Left breast: Multiple positional exam no dominant masses or nodules of concern, fibrocystic changes Left axilla: No adenopathy of concern Assessment and Plan Assessment: Impression: Stage I a multifocal invasive ductal carcinoma/patient underwent a right breast lumpectomy and sentinel node biopsy on [id number]. Pathology revealed multifocal invasive ductal carcinoma grade 2. [place] node was negative. She completed proton radiation [facility] in November 2021. She did not have any chemo or hormonal therapy. At this time she does not note any lumps masses or nodules of concern in either breast. bilateral mammogram 11-08-23; BIRAD 3 repeat right breast mammogram in 6 months done on 07-25-24 and personally reviewed and discussed with Dr. Gonzalez repeat mammogram in 6 months bilateral Plan: bilateral breast mammogram in 6 months with appointment Follow-up sooner any questions or concerns CC: Dr. Bishop
--- NOTE | 2024-07-25 13:23 | MM ---
Reason for Exam: Follow-up at short interval from prior study. Last screening mammogram was performed 9 month(s) ago. Patient History: Menarche at age 12. First Full-Term at age 17. Right ovary removed at age 32. Postmenopausal. Patient has history of breast feeding. Breast cancer, right, age 76. Previous chest radiation therapy at age 76. 07/26/2021, Lumpectomy on the Right side. 07/26/2021, Malignant Core Biopsy on the right side. Niece had breast cancer under age 50. Maternal aunt had ovarian cancer at or over age 50. Prior Study Comparison: 09/28/2022 Bilateral MG 3D diag mammo w/cad DANITA, [facility]. 03/30/2023 Right MG 3D diag mammo w/cad RT, [facility]. 11/08/2023 Bilateral MG 3D diag mammo w/cad DANITA, [facility]. Tissue Density: Right: The breasts are heterogeneously dense, which may obscure small masses. Findings: Analyzed By CAD. Again noted are postoperative lumpectomy changes right breast. Stable dystrophic calcifications. No new masses identified. As the operative Distortion right breast. Overall Assessment: Benign, BI-RAD 2 Management: Diagnostic Mammogram of both breasts in 6 months. . Results were given to the patient verbally at the time of exam. Patient should continue monthly self-breast exams. A clinical breast exam by your physician is recommended on an annual basis. This exam should not preclude additional follow-up of suspicious palpable abnormalities. Note on Kaylen scores and lifetime risk: 1. A Kaylen score greater than 3% is considered moderate risk. If this is the case, consider specialist referral to assess eligibility for a risk reducing agent. 2. If overall lifetime risk for the development of breast cancer is 20% or higher, the patient may qualify for future screening with alternating mammogram and breast MRI. [facility], , 07/25/2024 1:20 PM. Electronically signed and approved by: Dany Calero M.D. Radiologis
== END ==
LOC: WWCWWP 11:42
PROVIDERS: ATTEND Surgery
DX: Z85.3 Personal history of malignant neoplasm of breast
CPT/HCPCS: 77061; 77065